=== PATIENT | female | born 1955 | race Two or more races ===

== ENCOUNTER 2022-01-13 10:23 | Outpatient (CLI) | payer MEDICARE, OTHER ==
[2022-01-13] MEDS ORDERED: SILVER SULFADIAZINE CREAM 25 GM TUBE ONE ×2 (11:35)
== END 2022-01-13 23:59 | disposition home or self-care (01) ==
LOC: WOU 10:23
PROVIDERS: ATTEND Specialist
DX: I89.0 Lymphedema, not elsewhere classified (principal); L03.116 Cellulitis of left lower limb; L03.115 Cellulitis of right lower limb; N63.0 Unspecified lump in unspecified breast
CPT/HCPCS: G0463

== ENCOUNTER 2022-01-19 10:13 | Outpatient (CLI) | payer MEDICARE, OTHER ==
[2022-01-19] MEDS ORDERED: SILVER SULFADIAZINE CREAM 25 GM TUBE ONE (12:02)
== END 2022-01-19 23:59 | disposition home or self-care (01) ==
LOC: WOU 10:13
PROVIDERS: ATTEND Podiatrist Foot & Ankle Surgery
DX: I89.0 Lymphedema, not elsewhere classified (principal); L03.116 Cellulitis of left lower limb; L03.115 Cellulitis of right lower limb; B35.1 Tinea unguium; L60.2 Onychogryphosis; B35.3 Tinea pedis; M79.672 Pain in left foot; M79.671 Pain in right foot
CPT/HCPCS: G0463; A6253

== ENCOUNTER 2022-01-20 10:15 | Outpatient (CLI) | payer MEDICARE, OTHER | END 2022-01-20 23:59 | disposition home or self-care (01) | LOC: WOU 10:15 | PROVIDERS: ATTEND Specialist | DX: I89.0 Lymphedema, not elsewhere classified (principal); L03.116 Cellulitis of left lower limb; L03.115 Cellulitis of right lower limb | CPT/HCPCS: G0463 ==

== ENCOUNTER 2022-01-27 11:15 | Outpatient (CLI) | payer MEDICARE, OTHER ==
[2022-01-27] MEDS ORDERED: SILVER SULFADIAZINE CREAM 25 GM TUBE ONE (12:05)
== END 2022-01-27 23:59 | disposition home or self-care (01) ==
LOC: WOU 11:15
PROVIDERS: ATTEND Specialist
DX: I89.0 Lymphedema, not elsewhere classified (principal); L03.116 Cellulitis of left lower limb; L03.115 Cellulitis of right lower limb
CPT/HCPCS: G0463

== ENCOUNTER 2022-01-29 11:24 | Outpatient (CLI) | payer MEDICARE, OTHER ==
[2022-01-29] MEDS ORDERED: SILVER SULFADIAZINE CREAM 25 GM TUBE ONE (11:54)
[2022-01-29] MEDS ORDERED: CLOTRIMAZOLE 1% 15 GM TUBE TP ONE (11:54)
== END 2022-01-29 23:59 | disposition home or self-care (01) ==
LOC: WOU 11:24
PROVIDERS: ATTEND Podiatrist Foot & Ankle Surgery
DX: I89.0 Lymphedema, not elsewhere classified (principal); L03.116 Cellulitis of left lower limb; L03.115 Cellulitis of right lower limb; L84 Corns and callosities; Z85.828 Personal history of other malignant neoplasm of skin
CPT/HCPCS: G0463; A6253

== ENCOUNTER 2022-02-03 09:43 | Outpatient (CLI) | payer MEDICARE, OTHER ==
[2022-02-03] MEDS ORDERED: SILVER SULFADIAZINE CREAM 25 GM TUBE ONE (11:37)
== END 2022-02-03 23:59 | disposition home or self-care (01) ==
LOC: WOU 09:43
PROVIDERS: ATTEND Specialist
DX: I89.0 Lymphedema, not elsewhere classified (principal); L03.116 Cellulitis of left lower limb; L03.115 Cellulitis of right lower limb; L84 Corns and callosities
CPT/HCPCS: G0463

== ENCOUNTER 2022-02-10 10:10 | Outpatient (CLI) | payer MEDICARE, OTHER ==
[2022-02-10] MEDS ORDERED: SILVER SULFADIAZINE CREAM 25 GM TUBE ONE ×2 (11:22→11:42)
== END 2022-02-10 23:59 | disposition home or self-care (01) ==
LOC: WOU 10:10
PROVIDERS: ATTEND Specialist
DX: I89.0 Lymphedema, not elsewhere classified (principal); L03.116 Cellulitis of left lower limb; L03.115 Cellulitis of right lower limb; L84 Corns and callosities; I87.2 Venous insufficiency (chronic) (peripheral); R92.8 Other abnormal and inconclusive findings on diagnostic imaging of breast
CPT/HCPCS: G0463

== ENCOUNTER 2022-02-17 10:47 | Outpatient (CLI) | payer MEDICARE, OTHER ==
[2022-02-17] MEDS ORDERED: SILVER SULFADIAZINE CREAM 25 GM TUBE ONE ×2 (11:22→11:49)
== END 2022-02-17 23:59 | disposition home or self-care (01) ==
LOC: WOU 10:47
PROVIDERS: ATTEND Specialist
DX: I89.0 Lymphedema, not elsewhere classified (principal); L03.116 Cellulitis of left lower limb; L03.115 Cellulitis of right lower limb; L84 Corns and callosities
CPT/HCPCS: G0463

== ENCOUNTER 2022-02-24 10:30 | Outpatient (CLI) | payer MEDICARE, OTHER ==
[2022-02-24] MEDS ORDERED: CLOTRIMAZOLE 1% 15 GM TUBE TP ONE (12:05)
[2022-02-24] MEDS ORDERED: SILVER SULFADIAZINE CREAM 25 GM TUBE ONE (12:21)
== END 2022-02-24 23:59 | disposition home or self-care (01) ==
LOC: WOU 10:30
PROVIDERS: ATTEND Specialist
DX: I89.0 Lymphedema, not elsewhere classified (principal); L84 Corns and callosities; L03.116 Cellulitis of left lower limb; L03.115 Cellulitis of right lower limb
CPT/HCPCS: G0463

== ENCOUNTER 2022-03-03 10:11 | Outpatient (CLI) | payer MEDICARE, OTHER ==
[2022-03-03] MEDS ORDERED: SILVER SULFADIAZINE CREAM 25 GM TUBE ONE ×2 (10:27→11:20)
== END 2022-03-03 23:59 | disposition home or self-care (01) ==
LOC: WOU 10:11
PROVIDERS: ATTEND Specialist
DX: I89.0 Lymphedema, not elsewhere classified (principal); L03.116 Cellulitis of left lower limb; L03.115 Cellulitis of right lower limb; L84 Corns and callosities
CPT/HCPCS: G0463

== ENCOUNTER 2022-03-17 09:55 | Outpatient (CLI) | payer MEDICARE, OTHER ==
[2022-03-17] MEDS ORDERED: SILVER SULFADIAZINE CREAM 25 GM TUBE ONE ×2 (10:14→11:47)
== END 2022-03-17 23:59 | disposition home or self-care (01) ==
LOC: WOU 09:55
PROVIDERS: ATTEND Specialist
DX: L03.116 Cellulitis of left lower limb (principal); L03.115 Cellulitis of right lower limb; B96.5 Pseudomonas (aeruginosa) (mallei) (pseudomallei) as the cause of diseases classified elsewhere; B96.4 Proteus (mirabilis) (morganii) as the cause of diseases classified elsewhere; I89.0 Lymphedema, not elsewhere classified; L84 Corns and callosities
CPT/HCPCS: G0463

== ENCOUNTER 2022-03-24 10:30 | Outpatient (CLI) | payer MEDICARE, OTHER ==
[2022-03-24] MEDS ORDERED: SILVER SULFADIAZINE CREAM 25 GM TUBE ONE ×2 (11:10)
== END 2022-03-24 23:59 | disposition home or self-care (01) ==
LOC: WOU 10:30
PROVIDERS: ATTEND Specialist
DX: L03.116 Cellulitis of left lower limb (principal); L03.115 Cellulitis of right lower limb; I89.0 Lymphedema, not elsewhere classified; L84 Corns and callosities
CPT/HCPCS: G0463

== ENCOUNTER 2022-03-31 10:00 | Outpatient (CLI) | payer MEDICARE, OTHER ==
[2022-03-31] MEDS ORDERED: SILVER SULFADIAZINE CREAM 25 GM TUBE ONE ×2 (10:40)
== END 2022-03-31 23:59 | disposition home or self-care (01) ==
LOC: WOU 10:00
PROVIDERS: ATTEND Specialist
DX: I89.0 Lymphedema, not elsewhere classified (principal); L03.116 Cellulitis of left lower limb; L03.115 Cellulitis of right lower limb; I87.2 Venous insufficiency (chronic) (peripheral); L84 Corns and callosities
CPT/HCPCS: A6253; G0463

== ENCOUNTER 2022-04-07 09:52 | Outpatient (CLI) | payer MEDICARE, OTHER ==
[2022-04-07] MEDS ORDERED: SILVER SULFADIAZINE CREAM 25 GM TUBE ONE ×2 (10:02)
== END 2022-04-07 23:59 | disposition home or self-care (01) ==
LOC: WOU 09:52
PROVIDERS: ATTEND Specialist
DX: I89.0 Lymphedema, not elsewhere classified (principal); L03.116 Cellulitis of left lower limb; L03.115 Cellulitis of right lower limb; L84 Corns and callosities; C90.00 Multiple myeloma not having achieved remission
CPT/HCPCS: G0463

== ENCOUNTER 2022-04-14 10:36 | Outpatient (CLI) | payer MEDICARE, OTHER ==
[~2022-04-14 10:36] MED LIST: SILVER SULFADIAZINE CREAM 25 GM TUBE ONE
== END 2022-04-14 23:59 | disposition home or self-care (01) ==
LOC: WOU 10:36
PROVIDERS: ATTEND Specialist
DX: I89.0 Lymphedema, not elsewhere classified (principal); I87.023 Postthrombotic syndrome with inflammation of bilateral lower extremity; L03.116 Cellulitis of left lower limb; L03.115 Cellulitis of right lower limb; C90.00 Multiple myeloma not having achieved remission; L84 Corns and callosities
CPT/HCPCS: G0463

== ENCOUNTER 2022-04-21 10:00 | Outpatient (CLI) | payer MEDICARE, OTHER ==
[2022-04-21] MEDS ORDERED: SILVER SULFADIAZINE CREAM 25 GM TUBE ONE (11:47)
== END 2022-04-21 23:59 | disposition home or self-care (01) ==
LOC: WOU 10:00
PROVIDERS: ATTEND Specialist
DX: I89.0 Lymphedema, not elsewhere classified (principal); L03.116 Cellulitis of left lower limb; L03.115 Cellulitis of right lower limb; L84 Corns and callosities; C90.00 Multiple myeloma not having achieved remission
CPT/HCPCS: G0463

== ENCOUNTER 2022-04-28 09:51 | Outpatient (CLI) | payer MEDICARE, OTHER ==
[2022-04-28] MEDS ORDERED: SILVER SULFADIAZINE CREAM 25 GM TUBE ONE ×2 (10:51)
== END 2022-04-28 23:59 | disposition home or self-care (01) ==
LOC: WOU 09:51
PROVIDERS: ATTEND Specialist
DX: I89.0 Lymphedema, not elsewhere classified (principal); I87.323 Chronic venous hypertension (idiopathic) with inflammation of bilateral lower extremity; L03.116 Cellulitis of left lower limb; L03.115 Cellulitis of right lower limb; L84 Corns and callosities; C90.00 Multiple myeloma not having achieved remission
CPT/HCPCS: 87070; 87075; G0463

== ENCOUNTER → 2022-05-05 | Outpatient (CLI) | payer MEDICARE, OTHER | END | disposition home or self-care (01) | LOC: WOU 09:57 | PROVIDERS: ATTEND Specialist | DX: I89.0 Lymphedema, not elsewhere classified (principal); L03.116 Cellulitis of left lower limb; L03.115 Cellulitis of right lower limb; I87.323 Chronic venous hypertension (idiopathic) with inflammation of bilateral lower extremity; C90.00 Multiple myeloma not having achieved remission; L84 Corns and callosities | CPT/HCPCS: G0463 ==

== ENCOUNTER 2022-05-12 09:55 | Outpatient (CLI) | payer MEDICARE, OTHER ==
[2022-05-12] MEDS ORDERED: SILVER SULFADIAZINE CREAM 25 GM TUBE ONE ×2 (10:55)
[2022-05-12] MEDS ORDERED: HYDROCORTISONE 1% CREAM 28.35 GM TUBE TP ONE (11:42)
[2022-05-12] MEDS ORDERED: CLOTRIMAZOLE 1% 15 GM TUBE TP ONE (11:51)
== END 2022-05-12 23:59 | disposition home or self-care (01) ==
LOC: WOU 09:55
PROVIDERS: ATTEND Specialist
DX: I89.0 Lymphedema, not elsewhere classified (principal); L03.116 Cellulitis of left lower limb; L03.115 Cellulitis of right lower limb; L30.9 Dermatitis, unspecified; C90.00 Multiple myeloma not having achieved remission; L84 Corns and callosities
CPT/HCPCS: G0463

== ENCOUNTER 2022-05-19 09:57 | Outpatient (CLI) | payer MEDICARE, OTHER ==
[2022-05-19] MEDS ORDERED: HYDROCORTISONE 1% CREAM 28.35 GM TUBE TP ONE (11:06)
[2022-05-19] MEDS ORDERED: SILVER SULFADIAZINE CREAM 25 GM TUBE ONE (11:06)
== END 2022-05-19 23:59 | disposition home or self-care (01) ==
LOC: WOU 09:57
PROVIDERS: ATTEND Specialist
DX: I89.0 Lymphedema, not elsewhere classified (principal); I87.2 Venous insufficiency (chronic) (peripheral); L84 Corns and callosities; C90.00 Multiple myeloma not having achieved remission; L03.116 Cellulitis of left lower limb; L03.115 Cellulitis of right lower limb
CPT/HCPCS: G0463

== ENCOUNTER 2022-06-02 10:45 | Outpatient (CLI) | payer MEDICARE, OTHER ==
[2022-06-02] MEDS ORDERED: HYDROCORTISONE 1% CREAM 28.35 GM TUBE TP ONE (10:55)
[2022-06-02] MEDS ORDERED: SILVER SULFADIAZINE CREAM 25 GM TUBE ONE (10:55)
== END 2022-06-02 23:59 | disposition home or self-care (01) ==
LOC: WOU 10:45
PROVIDERS: ATTEND Specialist
DX: I89.0 Lymphedema, not elsewhere classified (principal); L03.116 Cellulitis of left lower limb; L03.115 Cellulitis of right lower limb; L84 Corns and callosities
CPT/HCPCS: G0463

== ENCOUNTER 2022-06-09 09:45 | Outpatient (CLI) | payer MEDICARE, OTHER ==
[2022-06-09] MEDS ORDERED: SILVER SULFADIAZINE CREAM 25 GM TUBE ONE (10:33)
[2022-06-09] MEDS ORDERED: HYDROCORTISONE 1% CREAM 28.35 GM TUBE TP ONE (10:33)
== END 2022-06-09 23:59 | disposition home or self-care (01) ==
LOC: WOU 09:45
PROVIDERS: ATTEND Specialist
DX: I89.0 Lymphedema, not elsewhere classified (principal); L03.116 Cellulitis of left lower limb; L84 Corns and callosities
CPT/HCPCS: G0463

== ENCOUNTER 2022-06-16 11:48 | Outpatient (CLI) | payer MEDICARE, OTHER ==
[~2022-06-16 11:48] MED LIST changes: +HYDROCORTISONE 1% CREAM 28.35 GM TUBE TP ONE
== END 2022-06-16 23:59 | disposition home or self-care (01) ==
LOC: WOU 11:48
PROVIDERS: ATTEND Specialist
DX: I89.0 Lymphedema, not elsewhere classified (principal); L03.116 Cellulitis of left lower limb; L03.115 Cellulitis of right lower limb; L84 Corns and callosities
CPT/HCPCS: G0463

== ENCOUNTER 2022-06-23 14:00 | Outpatient (CLI) | payer MEDICARE, OTHER ==
[~2022-06-23 14:00] MED LIST changes: -HYDROCORTISONE 1% CREAM 28.35 GM TUBE TP ONE
== END 2022-06-23 23:59 | disposition home or self-care (01) ==
LOC: WOU 14:00
PROVIDERS: ATTEND Specialist
DX: R50.9 Fever, unspecified (principal); L03.115 Cellulitis of right lower limb; I89.0 Lymphedema, not elsewhere classified; L84 Corns and callosities
CPT/HCPCS: G0463

== ENCOUNTER 2022-07-07 10:05 | Outpatient (CLI) | payer MEDICARE, OTHER ==
[2022-07-07] MEDS ORDERED: SILVER SULFADIAZINE CREAM 25 GM TUBE ONE ×2 (10:17)
== END 2022-07-07 23:59 | disposition home or self-care (01) ==
LOC: WOU 10:05
PROVIDERS: ATTEND Specialist
DX: L03.116 Cellulitis of left lower limb (principal); L03.115 Cellulitis of right lower limb; I89.0 Lymphedema, not elsewhere classified; L84 Corns and callosities
CPT/HCPCS: G0463

== ENCOUNTER 2022-07-14 09:58 | Outpatient (CLI) | payer MEDICARE, OTHER ==
[2022-07-14] MEDS ORDERED: SILVER SULFADIAZINE CREAM 25 GM TUBE ONE (11:06)
== END 2022-07-14 23:59 | disposition home or self-care (01) ==
LOC: WOU 09:58
PROVIDERS: ATTEND Specialist
DX: I89.0 Lymphedema, not elsewhere classified (principal); L84 Corns and callosities; L03.116 Cellulitis of left lower limb; L03.115 Cellulitis of right lower limb
CPT/HCPCS: G0463

== ENCOUNTER 2022-07-21 10:25 | Outpatient (CLI) | payer MEDICARE, OTHER ==
[2022-07-21] MEDS ORDERED: SILVER SULFADIAZINE CREAM 25 GM TUBE ONE (11:20)
== END 2022-07-21 23:59 | disposition home or self-care (01) ==
LOC: WOU 10:25
PROVIDERS: ATTEND Specialist
DX: I89.0 Lymphedema, not elsewhere classified (principal); L03.116 Cellulitis of left lower limb; L03.115 Cellulitis of right lower limb; L84 Corns and callosities
CPT/HCPCS: G0463

== ENCOUNTER 2022-07-28 09:57 | Outpatient (CLI) | payer MEDICARE, OTHER ==
[2022-07-28] MEDS ORDERED: SILVER SULFADIAZINE CREAM 25 GM TUBE ONE (10:55)
== END 2022-07-28 23:59 | disposition home or self-care (01) ==
LOC: WOU 09:57
PROVIDERS: ATTEND Specialist
DX: I89.0 Lymphedema, not elsewhere classified (principal); L03.116 Cellulitis of left lower limb; L03.115 Cellulitis of right lower limb; L84 Corns and callosities
CPT/HCPCS: G0463

== ENCOUNTER 2022-08-04 10:03 | Outpatient (CLI) | payer MEDICARE, OTHER | END 2022-08-04 23:59 | disposition home or self-care (01) | LOC: WOU 10:03 | PROVIDERS: ATTEND Specialist | DX: I89.0 Lymphedema, not elsewhere classified (principal); L03.116 Cellulitis of left lower limb; L03.115 Cellulitis of right lower limb; L84 Corns and callosities | CPT/HCPCS: G0463 ==

== ENCOUNTER 2022-08-11 10:05 | Outpatient (CLI) | payer MEDICARE, OTHER ==
[2022-08-11] MEDS ORDERED: SILVER SULFADIAZINE CREAM 25 GM TUBE ONE (11:47)
== END 2022-08-11 23:59 | disposition home or self-care (01) ==
LOC: WOU 10:05
PROVIDERS: ATTEND Specialist
DX: I89.0 Lymphedema, not elsewhere classified (principal); L03.116 Cellulitis of left lower limb; L03.115 Cellulitis of right lower limb; I87.2 Venous insufficiency (chronic) (peripheral); L84 Corns and callosities
CPT/HCPCS: A6207; G0463

== ENCOUNTER 2022-08-18 09:57 | Outpatient (CLI) | payer MEDICARE, OTHER ==
[2022-08-18] MEDS ORDERED: SILVER SULFADIAZINE CREAM 25 GM TUBE ONE (10:29)
== END 2022-08-18 23:59 | disposition home or self-care (01) ==
LOC: WOU 09:57
PROVIDERS: ATTEND Specialist
DX: I89.0 Lymphedema, not elsewhere classified (principal); L03.116 Cellulitis of left lower limb; L03.115 Cellulitis of right lower limb; I87.2 Venous insufficiency (chronic) (peripheral); L84 Corns and callosities
CPT/HCPCS: G0463

== ENCOUNTER 2022-08-25 09:56 | Outpatient (CLI) | payer MEDICARE, OTHER ==
[2022-08-25] MEDS ORDERED: SILVER SULFADIAZINE CREAM 25 GM TUBE ONE (11:46)
== END 2022-08-25 23:59 | disposition home or self-care (01) ==
LOC: WOU 09:56
PROVIDERS: ATTEND Specialist
DX: I89.0 Lymphedema, not elsewhere classified (principal); L03.116 Cellulitis of left lower limb; L03.115 Cellulitis of right lower limb; L84 Corns and callosities
CPT/HCPCS: G0463

== ENCOUNTER 2022-09-15 11:00 | Outpatient (CLI) | payer MEDICARE, OTHER ==
[2022-09-15] MEDS ORDERED: SILVER SULFADIAZINE CREAM 25 GM TUBE ONE (11:26)
== END 2022-09-15 23:59 | disposition home or self-care (01) ==
LOC: WOU 11:00
PROVIDERS: ATTEND Specialist
DX: I89.0 Lymphedema, not elsewhere classified (principal); L03.116 Cellulitis of left lower limb; L03.115 Cellulitis of right lower limb; L84 Corns and callosities
CPT/HCPCS: G0463

== ENCOUNTER 2022-10-04 10:14 | Outpatient (CLI) | payer MEDICARE, OTHER | END 2022-10-04 23:59 | disposition home or self-care (01) | LOC: WOU 10:14 | PROVIDERS: ATTEND Specialist | DX: L03.116 Cellulitis of left lower limb (principal); L03.115 Cellulitis of right lower limb; I89.0 Lymphedema, not elsewhere classified; I87.333 Chronic venous hypertension (idiopathic) with ulcer and inflammation of bilateral lower extremity; L97.828 Non-pressure chronic ulcer of other part of left lower leg with other specified severity; L97.818 Non-pressure chronic ulcer of other part of right lower leg with other specified severity; L84 Corns and callosities | CPT/HCPCS: G0463 ==

== ENCOUNTER 2022-11-10 10:39 | Outpatient (CLI) | payer MEDICARE, OTHER ==
[2022-11-10] MEDS ORDERED: SILVER SULFADIAZINE CREAM 25 GM TUBE ONE (12:00)
== END 2022-11-10 23:59 | disposition home health service (06) ==
LOC: WOU 10:39
PROVIDERS: ATTEND Specialist
DX: I89.0 Lymphedema, not elsewhere classified (principal); L84 Corns and callosities; Z85.828 Personal history of other malignant neoplasm of skin; I87.2 Venous insufficiency (chronic) (peripheral); E66.9 Obesity, unspecified; Z68.41 Body mass index [BMI] 40.0-44.9, adult
CPT/HCPCS: G0463; A6454

== ENCOUNTER 2022-12-01 09:49 | Outpatient (CLI) | payer MEDICARE, OTHER ==
[2022-12-01] MEDS ORDERED: SILVER SULFADIAZINE CREAM 25 GM TUBE ONE (11:42)
== END 2022-12-01 23:59 | disposition home health service (06) ==
LOC: WOU 09:49
PROVIDERS: ATTEND Specialist
DX: I89.0 Lymphedema, not elsewhere classified (principal); L84 Corns and callosities
CPT/HCPCS: G0463; A6454

== ENCOUNTER 2023-08-09 11:09 | Outpatient (CLI) | payer MEDICARE, OTHER ==
[2023-08-09] MEDS ORDERED: SILVER SULFADIAZINE CREAM 25 GM TUBE ONE (11:42)
== END 2023-08-09 23:59 | disposition home or self-care (01) ==
LOC: WOU 11:09
PROVIDERS: ATTEND Podiatrist Foot & Ankle Surgery
DX: I87.323 Chronic venous hypertension (idiopathic) with inflammation of bilateral lower extremity (principal); I89.0 Lymphedema, not elsewhere classified; L84 Corns and callosities; L60.2 Onychogryphosis
CPT/HCPCS: G0463; A6454